=== PATIENT | female | born 1995 ===

== ENCOUNTER 2018-01-26 20:53 | Emergency (ER) | payer MEDICAID ==
[2018-01-26 20:53] VITALS: BMI 34.4
[2018-01-26 21:13] VITALS: RESP 18
--- NOTE | 2018-01-26 21:28 | C.PDOC ---
History Of Present Illness 22-year-old female presents to the ED with complaints of dysuria, back pain, and lower abdominal pain that began 4 hours ago. She also reports nausea and has had 5 episodes of non-bloody, non-bilious vomiting. Patient is currently menstruating but states she usually has no nausea. She denies any diarrhea, fever, chills, weakness. Patient did not take anything for pain prior to arrival. On further discussion, patient notes her last bowel movement was 3 days ago. Time Seen by Provider: 01/26/18 21:12 Chief Complaint (Nursing): Female Genitourinary History Per: Patient History/Exam Limitations: no limitations Onset/Duration Of Symptoms: Hrs (x4) Current Symptoms Are (Timing): Still Present Associated Symptoms: Nausea, Vomiting, Back Pain, Urinary Symptoms Past Medical History Reviewed: Historical Data, Nursing Documentation, Vital Signs Vital Signs: Last Vital Signs Temp 98.3 F 01/26/18 23:02 Pulse 65 01/26/18 23:02 Resp 18 01/26/18 23:02 BP 114/74 01/26/18 23:02 Pulse Ox 99 01/26/18 23:02 - Medical History PMH: Anemia, Asthma, Depression Denies: End Stage Renal Disease, Chronic Kidney Disease Surgical History: Appendectomy, Tonsillectomy - [facility] Procedures FAMILY THERAPY (05/13/14) INDIVID PSYCHOTHERAP NEC (05/13/14) OTHER GROUP THERAPY (05/13/14) Family History: States: Unknown Family Hx - Social History Hx Alcohol Use: No Hx Substance Use: No Review Of Systems Constitutional: Negative for: Fever, Chills, Sweats Cardiovascular: Negative for: Chest Pain Respiratory: Negative for: Shortness of Breath Gastrointestinal: Positive for: Nausea, Vomiting, Abdominal Pain, Constipation. Negative for: Diarrhea, Hematochezia, Hematemesis Genitourinary: Positive for: Dysuria, Vaginal Bleeding (currently on period). Negative for: Frequency Musculoskeletal: Positive for: Back Pain Neurological: Negative for: Weakness, Numbness, Incoordination Physical Exam - Physical Exam Appears: Well, Non-toxic, No Acute Distress Skin: Warm, Dry, No Rash Head: Atraumatic, Normacephalic Eye(s): bilateral: Normal Inspection Oral Mucosa: Moist Neck: Normal ROM Chest: Symmetrical Cardiovascular: Rhythm Regular, No Murmur Respiratory: Normal Breath Sounds, No Wheezing Gastrointestinal/Abdominal: Bowel Sounds (active), Soft, No Tenderness, No Mass , No Distention, No Guarding, No Rebound Back: No CVA Tenderness, No Vertebral Tenderness Extremity: Bilateral: Atraumatic, Normal Color And Temperature, Normal ROM Neurological/Psych: Oriented x3, Normal Speech Gait: Steady ED Course And Treatment - Laboratory Results Result Diagrams: 01/26/18 21:54 01/26/18 21:54 Urine POC: Negative O2 Sat by Pulse Oximetry: 100 (RA) Pulse Ox Interpretation: Normal Medical Decision Making Medical Decision Making: Impression: 22 year old with dysuria, back pain, abdominal pain, constipation Plan: --Urine POC --Urinalysis --Urine culture --Zofran ODT 4 mg --Pyridium 100 mg PO Progress/Updates: Labs reviewed, UA is clear. Xray shows fecal retention. Patient remained afebrile alert and oriented with stable vital signs during ER evaluation. On re-examination, patient is resting comfortably in no acute distress. Abdomen soft and no tenderness. Patient reports improvement of symptoms. Patient feels comfortable going home and will be discharged. Patient given follow up instructions. Instructed to return to ER if symptoms worsen or new symptoms arise. Disposition Counseled Patient/Family Regarding: Diagnosis, Need For Followup, Rx Given - Disposition Referrals: [facility] [Outside] [facility] [Outside] Disposition: HOME/ ROUTINE Disposition Time: 22:33 Condition: STABLE Additional Instructions: Your labs were normal. Xray shows constipation Take medications to help with constipation Prescriptions: Docusate [Colace] 100 mg PO TID PRN #30 cap PRN Reason: Constipation Magnesium Citrate [Citrate of Mag] 300 ml PO ONCE PRN #1 bottle PRN Reason: Constipation Instructions: Constipation, Adult (DC) Forms: @Pay (Khmer) - POA Present On Arrival: None - Clinical Impression Clinical Impression: Constipation - PA / [address] / Resident Statement MD/DO has reviewed & agrees with the documentation as recorded. - Scribe Statement The provider has reviewed the documentation as recorded by the Scribe (Kelly Woody) All medical record entries made by the Scribe were at my direction and personally dictated by me. I have reviewed the chart and agree that the record accurately reflects my personal performance of the history, physical exam, medical decision making, and the department course for this patient. I have also personally directed, reviewed, and agree with the discharge instructions and disposition.
[2018-01-26 21:30] LABS: SQUAMOUS EPITHIAL 1 /hpf (0-5); URINE BILIRUBIN NEGATIVE (NEGATIVE); URINE BLOOD NEGATIVE (NEGATIVE); URINE CLARITY Clear (Clear); URINE COLOR Yellow (YELLOW); URINE GLUCOSE (UA) NORMAL (Normal); URINE LEUKOCYTE ESTERASE NEG Leu/uL (Negative); URINE PROTEIN 1+ mg/dL (NEGATIVE)
[2018-01-26] MEDS ORDERED: Sodium Chloride 0.9% 1,000 ML IV ONE (21:42)
[2018-01-26 21:59] LABS: BASO # 0.1 K/uL (0.0-0.2); BASO % 0.7 % (0.0-2.0); EOS % 0.5 % (0.0-4.0); HEMOGLOBIN 13.8 g/dL (11.0-16.0); LYMPH # 1.6 K/uL (1.0-4.3); LYMPH % 18.7 % (20.0-40.0); MEAN CELL VOLUME 82.1 fL (81.0-99.0); MEAN CORPUSCULAR HEMOGLOBIN 26.8 pg (27.0-31.0); MEAN CORPUSCULAR HGB CONC 32.6 g/dL (33.0-37.0); MEAN PLATELET VOLUME 10.2 fL (7.2-11.7); MONO # 0.7 K/uL (0.0-0.8); MONO % 8.2 % (0.0-10.0); NEUT # 6.2 K/uL (1.8-7.0); NEUT % 71.9 % (50.0-75.0); RBC 5.16 Mil/uL (3.80-5.20); RED CELL DISTRIBUTION WIDTH 13.8 % (11.5-14.5); WHITE BLOOD COUNT 8.6 K/uL (4.8-10.8)
[2018-01-26 22:13] LABS: ALB/GLOB RATIO 1.5 (1.0-2.1); ALBUMIN 4.8 g/dL (3.5-5.0); ALT/SGPT 31 U/L (9-52); AST/SGOT 20 U/L (14-36); BLOOD UREA NITROGEN 14 mg/dL (7-17); CALCIUM 10.1 mg/dl (8.6-10.4); GFR NON-AFRICAN AMERICAN > 60
[2018-01-26] MEDS ORDERED: Sodium Chloride 0.9% 1,000 ML ONE (22:21)
[2018-01-26 23:09] VITALS: BP 114/74; PULSE 65; TEMP 98.3
[2018-01-27 00:14] VITALS: O2SAT 100
--- NOTE | 2018-01-27 08:39 | RAD ---
Date of service: 01/26/2018 PROCEDURE: Radiographs of the chest and abdomen (obstructive series) HISTORY: Abd Pain COMPARISON: No prior. TECHNIQUE: AP radiograph of the chest, with upright and supine radiographs of the abdomen. FINDINGS: CHEST: Lungs: Clear. Cardiovascular: Normal size heart. No pulmonary vascular congestion. Pleura: No pleural fluid. No pneumothorax. Other findings: None. ABDOMEN AND PELVIS: Bowel: Moderate stool retention. No evidence of mechanical obstruction. Free air: None. Bones: Lumbar leftward convexity. Other findings: None. IMPRESSION: No pulmonary infiltrate. Moderate stool retention. No evidence of mechanical bowel obstruction.
== END 2018-01-26 23:09 | disposition home or self-care (01) ==
LOC: C.ER 20:53
DX: K59.00 Constipation, unspecified (principal); D64.9 Anemia, unspecified
CPT/HCPCS: 74022; 80053; 81001; 85025; 96360; 99285; J7030

== ENCOUNTER 2018-01-28 23:25 | Inpatient (IN) | payer MEDICAID ==
[2018-01-28 23:25] VITALS: BMI 34.4
[2018-01-28] MEDS ORDERED: Sodium Chloride 0.9% 1,000 ML IV ONE (23:53)
--- NOTE | 2018-01-29 00:04 | C.PDOC ---
History Of Present Illness 22 year old female with PMHx of cholelithiasis presents to the ED complaining of abdominal pain. Patient states she had a syncopal episode when she was eating at a restaurant today. She was seen in another institution prior to arrival and was sent home. She denies any n/v/d, fever, chills, urinary symptoms or any other symptoms. Time Seen by Provider: 01/28/18 23:41 Chief Complaint (Nursing): Abdominal Pain History Per: Patient History/Exam Limitations: no limitations Onset/Duration Of Symptoms: Hrs Current Symptoms Are (Timing): Still Present Location Of Pain/Discomfort: Epigastric Radiation Of Pain To:: None Quality Of Discomfort: "Pain" Associated Symptoms: denies: Fever, Nausea, Vomiting, Diarrhea, Urinary Symptoms Past Medical History Reviewed: Historical Data, Nursing Documentation, Vital Signs Vital Signs: Last Vital Signs Temp 98.5 F 01/28/18 23:32 Pulse 74 01/28/18 23:32 Resp 20 01/28/18 23:32 BP 143/82 01/28/18 23:32 Pulse Ox 100 01/28/18 23:32 - Medical History PMH: Anemia, Asthma, Depression Denies: End Stage Renal Disease, Chronic Kidney Disease Surgical History: Appendectomy, Tonsillectomy - [facility] Procedures FAMILY THERAPY (05/13/14) INDIVID PSYCHOTHERAP NEC (05/13/14) OTHER GROUP THERAPY (05/13/14) Family History: States: No Known Family Hx - Social History Hx Alcohol Use: No Hx Substance Use: No - Immunization History Hx Tetanus Toxoid Vaccination: No Hx Influenza Vaccination: No Hx Pneumococcal Vaccination: No Review Of Systems Except As Marked, All Systems Reviewed And Found Negative. Constitutional: Negative for: Fever, Chills Gastrointestinal: Positive for: Abdominal Pain. Negative for: Nausea, Vomiting, Diarrhea Genitourinary: Negative for: Dysuria, Hematuria Physical Exam - Physical Exam Appears: Non-toxic, Other (morbidly obese) Skin: Warm, Dry Head: Normacephalic Eye(s): bilateral: Normal Inspection Nose: Normal Oral Mucosa: Moist Neck: Normal ROM Chest: Symmetrical Cardiovascular: Rhythm Regular Respiratory: Normal Breath Sounds, No Rales, No Rhonchi, No Wheezing Gastrointestinal/Abdominal: Tenderness (epigastric tenderness), No Guarding, No Rebound Extremity: Normal ROM Neurological/Psych: Oriented x3, Normal Speech Gait: Steady ED Course And Treatment - Laboratory Results Result Diagrams: 01/29/18 00:14 01/29/18 00:14 ECG: Interpreted By Me, Viewed By Me ECG Rhythm: Sinus Rhythm ECG Interpretation: No Acute Changes Interpretation Of ECG: No ST/T wave changes Rate From EC O2 Sat by Pulse Oximetry: 100 (RA) Pulse Ox Interpretation: Normal Medical Decision Making Medical Decision Making: suspect vasovagal etiology - pt with upper abd pain h/o of cholelithiasis. Orders: - EKG - Labwork - Bloodwork - UA - US abdomen - IV Fluids - Protonix 40mg IVP pt reassesed: us shows possible cholecystitis. pt with [facility], accepts request dr garrido for consult. unlikely cardiac syncope, stable for floor. Disposition - Disposition Disposition: HOSPITALIZED Disposition Time: 03:00 Condition: STABLE - Clinical Impression Clinical Impression: Cholecystitis, Syncope - Scribe Statement The provider has reviewed the documentation as recorded by the Mary Anneibfernanda Rodriguez All medical record entries made by the Mary Anneibfernanda were at my direction and personally dictated by me. I have reviewed the chart and agree that the record accurately reflects my personal performance of the history, physical exam, medical decision making, and the department course for this patient. I have also personally directed, reviewed, and agree with the discharge instructions and disposition.
[2018-01-29] MEDS ORDERED: Sodium Chloride 0.9% 1,000 ML ONE (00:11)
[2018-01-29 00:17] LABS: BASO # 0.1 K/uL (0.0-0.2); BASO % 0.6 % (0.0-2.0); EOS % 0.4 % (0.0-4.0); HEMOGLOBIN 13.7 g/dL (11.0-16.0); LYMPH # 1.6 K/uL (1.0-4.3); LYMPH % 17.8 % (20.0-40.0); MEAN CELL VOLUME 81.5 fL (81.0-99.0); MEAN CORPUSCULAR HEMOGLOBIN 27.1 pg (27.0-31.0); MEAN CORPUSCULAR HGB CONC 33.2 g/dL (33.0-37.0); MEAN PLATELET VOLUME 10.6 fL (7.2-11.7); MONO # 0.6 K/uL (0.0-0.8); MONO % 6.6 % (0.0-10.0); NEUT # 6.9 K/uL (1.8-7.0); NEUT % 74.6 % (50.0-75.0); RBC 5.05 Mil/uL (3.80-5.20); RED CELL DISTRIBUTION WIDTH 13.7 % (11.5-14.5); WHITE BLOOD COUNT 9.2 K/uL (4.8-10.8)
[2018-01-29 00:31] LABS: INR 1.2; PROTHROMBIN TIME 13.6 SECONDS (9.7-12.2)
[2018-01-29 01:02] LABS: ALB/GLOB RATIO 1.5 (1.0-2.1); ALBUMIN 4.1 g/dL (3.5-5.0); ALT/SGPT 32 U/L (9-52); AST/SGOT 17 U/L (14-36); BILIRUBIN,DIRECT 0.2 mg/dL (0.0-0.4); BLOOD UREA NITROGEN 11 mg/dL (7-17); CALCIUM 8.9 mg/dl (8.6-10.4); GFR NON-AFRICAN AMERICAN > 60
[2018-01-29 02:01] LABS: HCG,QUALITATIVE URINE NEGATIVE (NEGATIVE)
[2018-01-29 02:02] LABS: SQUAMOUS EPITHIAL < 1 /hpf (0-5); URINE BILIRUBIN NEGATIVE (NEGATIVE); URINE BLOOD 1+ (NEGATIVE); URINE CLARITY Clear (Clear); URINE COLOR Yellow (YELLOW); URINE GLUCOSE (UA) NORMAL (Normal); URINE LEUKOCYTE ESTERASE NEG Leu/uL (Negative); URINE PROTEIN NEGATIVE (NEGATIVE); URINE UROBILINOGEN NORMAL mg/dL (0.2-1.0)
[2018-01-29] MEDS ORDERED: Morphine 4 MG/ML VIAL ONE (02:41)
[2018-01-29] MEDS ORDERED: Piperacillin/Tazobact 3.375 gm 100 ML IVPB STA (03:22)
[2018-01-29] MEDS ORDERED: Piperacillin/Tazobact 3.375 gm 100 ML IVPB ONE (03:30)
--- NOTE | 2018-01-29 03:30 | CP.PCM.HP ---
History of Present Illness - History of Present Illness History of Present Illness: History and Physical - Dr Florez Service CC: Abdominal Pain HPI: Patient is a 22 year old female with past medical history of cholelithiasis who presented to the emergency department for worsening abdominal pain. Patient states that for the past two weeks she has been experiencing intermittent abdominal pain. Pain is located in the right upper and left upper quadrants. She states that she tried taking Tylenol and Advil with no relief. Movement makes it worse. She reports that warm compresses to her abdomen gives her some relief in symptoms. Patient reports that she has been dealing with intermittent abdominal pain for the past few years. Unsure if pain is worsened with food or not. While eating at a [place] restaurant today, she states that she started to feel dizzy and on the way to the bathroom has a syncopal episode. She reports that she lost consciousness and was taken to "[facility]" where she was later dischar ge. While at home, she tried drinking tea for the abdominal pain with no relief and prompted her to come to the emergency dept. Describes the pain as a stabbing pain. Rates that pain a 10/10 on the pain scale. She admits to feeling lightheaded and some dysuria. She denies fevers, chills, headaches, dizziness, cp, palpitations, shortness of breath, nausea/vomiting, constipation or diarrhea. Last bowel movement was today and was normal. ED Course: Morphine 4mg x 1, Zosyn 3.375 IVPB, Tylenol 975mg PO x1 Allergies: NKDA Medications: Denies Medical History: Cholelithiasis Surgical History: Appendectomy, Tonsillectomy Social History: Denies alcohol, tobacco, drug use; Has a 2 year old daught Family History: Mother - healthy; Father - HTN, Paternal Grandmother - Diabetes Mellitus, Maternal Grandmother - HTN OBGYN History: LMP 01/26/18, in 2016, Denies history of fibroids, ovarian cysts, STDs Present on Admission - Present on Admission Any Indicators Present on Admission: No Past Patient History - Infectious Disease Hx of Infectious Diseases: None - Tetanus Immunizations Tetanus Immunization: Up to Date - Past Social History Smoking Status: Never Smoked - CARDIAC Hx Cardiac Disorders: No - PULMONARY Hx Asthma: Yes - NEUROLOGICAL Hx Neurological Disorder: No - HEENT Hx HEENT Problems: No - RENAL Hx Chronic Kidney Disease: No - ENDOCRINE/METABOLIC Hx Endocrine Disorders: No - HEMATOLOGICAL/ONCOLOGICAL Hx Anemia: Yes - INTEGUMENTARY Hx Dermatological Problems: No - MUSCULOSKELETAL/RHEUMATOLOGICAL Hx Musculoskeletal Disorders: No - GASTROINTESTINAL Hx Gastrointestinal Disorders: No - GENITOURINARY/GYNECOLOGICAL Hx Genitourinary Disorders: No - PSYCHIATRIC Hx Depression: Yes Hx Substance Use: No - SURGICAL HISTORY Hx Appendectomy: Yes Hx Tonsillectomy: Yes - ANESTHESIA Hx Anesthesia: Yes Hx Anesthesia Reactions: No Meds Allergies/Adverse Reactions: Allergies Allergy/AdvReac Type Severity Reaction Status Date / Time No Known Allergies Allergy Verified 01/28/18 23:39 Physical Exam - Constitutional Appears: Non-toxic, No Acute Distress - Head Exam Head Exam: ATRAUMATIC, NORMAL INSPECTION, NORMOCEPHALIC - Eye Exam Eye Exam: EOMI, Normal appearance Pupil Exam: NORMAL ACCOMODATION - ENT Exam ENT Exam: Mucous Membranes Moist - Respiratory Exam Respiratory Exam: Clear to Auscultation Bilateral, NORMAL BREATHING PATTERN. absent: Rales, Rhonchi, Wheezes - Cardiovascular Exam Cardiovascular Exam: REGULAR RHYTHM, +S1, +S2 - GI/Abdominal Exam GI & Abdominal Exam: Normal Bowel Sounds, Soft, Tenderness (RUQ, epigastric and LUQ tenderness to palpation; Corey's negative). absent: Distended, Hernia, Rebound, Rigid - Extremities Exam Extremities exam: Positive for: normal inspection, pedal pulses present. Negative for: calf tenderness, joint swelling - Back Exam Back exam: NORMAL INSPECTION - Neurological Exam Neurological exam: Alert, Oriented x3 - Psychiatric Exam Psychiatric exam: Normal Affect, Normal Mood - Skin Skin Exam: Dry, Normal Color, Warm Results - Vital Signs Recent Vital Signs: Last Vital Signs Temp 98.4 F 01/29/18 01:56 Pulse 71 01/29/18 01:56 Resp 18 01/29/18 01:56 BP 121/77 01/29/18 01:56 Pulse Ox 100 01/29/18 01:56 - Labs Result Diagrams: 01/29/18 00:14 01/29/18 00:14 Labs: Laboratory Results - last 24 hr 01/29/18 01/29/18 01/29/18 00:14 00:14 00:14 WBC 9.2 RBC 5.05 Hgb 13.7 Hct 41.1 MCV 81.5 MCH 27.1 MCHC 33.2 RDW 13.7 Plt Count 198 MPV 10.6 Neut % (Auto) 74.6 Lymph % (Auto) 17.8 L [place] % (Auto) 6.6 Eos % (Auto) 0.4 Baso % (Auto) 0.6 Neut # (Auto) 6.9 Lymph # (Auto) 1.6 [place] # (Auto) 0.6 Eos # (Auto) 0.0 Baso # (Auto) 0.1 PT 13.6 H INR 1.2 APTT 35 H Sodium 145 Potassium 3.6 Chloride 110 H Carbon Dioxide 26 Anion Gap 13 BUN 11 Creatinine 0.6 L Est GFR ( Amer) > 60 Est GFR (Non-Af Amer) > 60 Random Glucose 93 Calcium 8.9 Total Bilirubin 0.6 Direct Bilirubin 0.2 AST 17 ALT 32 Alkaline Phosphatase 60 Troponin I < 0.0120 Total Protein 6.8 Albumin 4.1 Globulin 2.8 Albumin/Globulin Ratio 1.5 Urine Color Urine Clarity Urine pH Ur Specific [place] Urine Protein Urine Glucose (UA) Urine Ketones Urine Blood Urine Nitrate Urine Bilirubin Urine Urobilinogen Ur Leukocyte Esterase Urine WBC (Auto) Urine RBC (Auto) Ur Squamous Epith Cells Urine HCG, Qual 01/29/18 01:49 WBC RBC Hgb Hct MCV MCH MCHC RDW Plt Count MPV Neut % (Auto) Lymph % (Auto) [place] % (Auto) Eos % (Auto) Baso % (Auto) Neut # (Auto) Lymph # (Auto) [place] # (Auto) Eos # (Auto) Baso # (Auto) PT INR APTT Sodium Potassium Chloride Carbon Dioxide Anion Gap BUN Creatinine Est GFR ( Amer) Est GFR (Non-Af Amer) Random Glucose Calcium Total Bilirubin Direct Bilirubin AST ALT Alkaline Phosphatase Troponin I Total Protein Albumin Globulin Albumin/Globulin Ratio Urine Color Yellow Urine Clarity Clear Urine pH 6.0 Ur Specific [place] 1.021 Urine Protein Negative Urine Glucose (UA) Normal Urine Ketones Negative Urine Blood 1+ H Urine Nitrate Negative Urine Bilirubin Negative Urine Urobilinogen Normal Ur Leukocyte Esterase Neg Urine WBC (Auto) < 1 Urine RBC (Auto) 5 H Ur Squamous Epith Cells < 1 Urine HCG, Qual Negative Assessment & Plan - Assessment and Plan (Free Text) Assessment: A/P: Patient is a 22 year old female with past medical history of cholelithiasis who presented to the emergency department for worsening intermittent abdominal pain that started two weeks. Abdominal Pain, Symptomatic Cholelithiasis -Stable, afebrile -Admit inpatient for observation -Abdominal US showing gallstones (official report pending) -Continue Zosyn 3.375mg IVPB Q6H -Diet NPO -NS at 100cc/hr -Morphine 2mg Q4H prn severe pain -F/U am labs, lipase -General surgery on consult, Dr Lund, help appreciated Syncopal Episode -EKG showed NSR with no ST-T wave changes, 68 bpm -Troponin was negative x 1 -Echocardiogram ordered -F/U TSH/Free T4, Orthostatics -Fall precautions GI/DVT ppx -Protonix 40mg IVP daily -SCDs Plan discussed with Dr Gautam Kathleen DO PGY-2
[2018-01-29] MEDS: Sodium Chloride 0.9% 1,000 ML IV SCH ×2 (04:30→14:57)
--- NOTE | 2018-01-29 05:30 | CP.PCM.CON ---
Addendum entered and electronically signed by Joey Damian 01/29/18 12:12: OK to feed for surgical standpoint. OR this admission once cleared by medicine and crib attendant Pt seen and examined w Dr. Penn. Case DW Dr. Lund Original Note: History of Present Illness - History of Present Illness History of Present Illness: 22F w/ PMH of cholelithiasis presents with abdominal pain to [facility] ED. Patient states she's been experiencing intermittent abdominal pain for the past 2 weeks. She states epigastric pain is worsened with ingestion of fatty foods. Patient reports having dinner with a friend at a restaurant yesterday when suddenly she starting feeling ill. Patient had a syncopal episode in restaurant. She states for the past month she's developed shortness of breath when walking 2-3 blocks. Denies having syncopal episodes prior to this event. At time of examination she denied headache/dizziness, fever/chills, nausea/vomiting, diarrhea. PMH: cholelithiasis PSH: open appendectomy, tonsillectomy Allergies: NKDA Review of Systems - Review of Systems Review of Systems: 12 pt ROS reviewed, unremarkable, except as stated in HPI Past Patient History - Infectious Disease Hx of Infectious Diseases: None - Tetanus Immunizations Tetanus Immunization: Up to Date - Past Medical History & Family History Past Medical History?: Yes - Past Social History Smoking Status: Never Smoked - CARDIAC Hx Cardiac Disorders: No - PULMONARY Hx Asthma: Yes - NEUROLOGICAL Hx Neurological Disorder: No - HEENT Hx HEENT Problems: No - RENAL Hx Chronic Kidney Disease: No - ENDOCRINE/METABOLIC Hx Endocrine Disorders: No - HEMATOLOGICAL/ONCOLOGICAL Hx Anemia: Yes - INTEGUMENTARY Hx Dermatological Problems: No - MUSCULOSKELETAL/RHEUMATOLOGICAL Hx Musculoskeletal Disorders: No - GASTROINTESTINAL Hx Gastrointestinal Disorders: No - GENITOURINARY/GYNECOLOGICAL Hx Genitourinary Disorders: No - PSYCHIATRIC Hx Depression: Yes Hx Substance Use: No - SURGICAL HISTORY Hx Appendectomy: Yes Hx Tonsillectomy: Yes - ANESTHESIA Hx Anesthesia: Yes Hx Anesthesia Reactions: No Meds Allergies/Adverse Reactions: Allergies Allergy/AdvReac Type Severity Reaction Status Date / Time No Known Allergies Allergy Verified 01/28/18 23:39 - Medications Medications: Current Medications Acetaminophen (Tylenol 325mg Tab) 650 mg PO Q6 PRN PRN Reason: Headache Sodium Chloride (Sodium Chloride 0.9%) 1,000 mls @ 100 mls/hr IV .Q10H DWAIN Last Admin: 01/29/18 04:30 Dose: 100 mls/hr Piperacillin Sod/Tazobactam Sod (Zosyn 3.375 Gm Iv Premix) 3.375 gm in 50 mls @ 100 mls/hr IVPB Q6H DWAIN; Protocol Morphine Sulfate (Morphine) 2 mg IVP Q4 PRN PRN Reason: Pain, severe (8-10) Pantoprazole Sodium (Protonix Inj) 40 mg IVP DAILY DWAIN Pneumococcal Polyvalent Vaccine (Pneumovax 23 Vaccine) 0.5 ml SC .ONCE ONE Stop: 02/01/18 10:01 Physical Exam - Constitutional Appears: No Acute Distress - Head Exam Head Exam: NORMOCEPHALIC - Eye Exam Eye Exam: Normal appearance - ENT Exam ENT Exam: Mucous Membranes Moist - Respiratory Exam Respiratory Exam: NORMAL BREATHING PATTERN - Cardiovascular Exam Cardiovascular Exam: +S1, +S2 - GI/Abdominal Exam GI & Abdominal Exam: Soft. absent: Distended, Firm, Guarding, Tenderness - Neurological Exam Neurological exam: Alert, Oriented x3 - Psychiatric Exam Psychiatric exam: Normal Mood - Skin Skin Exam: Dry, Normal Color, Warm Results - Vital Signs Recent Vital Signs: Last Vital Signs Temp 98.1 F 01/29/18 03:35 Pulse 58 L 01/29/18 03:35 Resp 14 01/29/18 03:35 BP 121/78 01/29/18 03:35 Pulse Ox 99 01/29/18 03:35 - Labs Result Diagrams: 01/29/18 00:14 01/29/18 00:14 Labs: Laboratory Results - last 24 hr 01/29/18 01/29/18 01/29/18 00:14 00:14 00:14 WBC 9.2 RBC 5.05 Hgb 13.7 Hct 41.1 MCV 81.5 MCH 27.1 MCHC 33.2 RDW 13.7 Plt Count 198 MPV 10.6 Neut % (Auto) 74.6 Lymph % (Auto) 17.8 L [place] % (Auto) 6.6 Eos % (Auto) 0.4 Baso % (Auto) 0.6 Neut # (Auto) 6.9 Lymph # (Auto) 1.6 [place] # (Auto) 0.6 Eos # (Auto) 0.0 Baso # (Auto) 0.1 PT 13.6 H INR 1.2 APTT 35 H Sodium 145 Potassium 3.6 Chloride 110 H Carbon Dioxide 26 Anion Gap 13 BUN 11 Creatinine 0.6 L Est GFR ( Amer) > 60 Est GFR (Non-Af Amer) > 60 Random Glucose 93 Calcium 8.9 Total Bilirubin 0.6 Direct Bilirubin 0.2 AST 17 ALT 32 Alkaline Phosphatase 60 Troponin I < 0.0120 Total Protein 6.8 Albumin 4.1 Globulin 2.8 Albumin/Globulin Ratio 1.5 Urine Color Urine Clarity Urine pH Ur Specific [place] Urine Protein Urine Glucose (UA) Urine Ketones Urine Blood Urine Nitrate Urine Bilirubin Urine Urobilinogen Ur Leukocyte Esterase Urine WBC (Auto) Urine RBC (Auto) Ur Squamous Epith Cells Urine HCG, Qual 01/29/18 01:49 WBC RBC Hgb Hct MCV MCH MCHC RDW Plt Count MPV Neut % (Auto) Lymph % (Auto) [place] % (Auto) Eos % (Auto) Baso % (Auto) Neut # (Auto) Lymph # (Auto) [place] # (Auto) Eos # (Auto) Baso # (Auto) PT INR APTT Sodium Potassium Chloride Carbon Dioxide Anion Gap BUN Creatinine Est GFR ( Amer) Est GFR (Non-Af Amer) Random Glucose Calcium Total Bilirubin Direct Bilirubin AST ALT Alkaline Phosphatase Troponin I Total Protein Albumin Globulin Albumin/Globulin Ratio Urine Color Yellow Urine Clarity Clear Urine pH 6.0 Ur Specific [place] 1.021 Urine Protein Negative Urine Glucose (UA) Normal Urine Ketones Negative Urine Blood 1+ H Urine Nitrate Negative Urine Bilirubin Negative Urine Urobilinogen Normal Ur Leukocyte Esterase Neg Urine WBC (Auto) < 1 Urine RBC (Auto) 5 H Ur Squamous Epith Cells < 1 Urine HCG, Qual Negative Assessment & Plan - Assessment and Plan (Free Text) Assessment: 22F with symptomatic cholelithiasis Plan: NPO for now IVF ABx Anti-emetics prn Analgesic prn Needs medical and cardiac clearance prior to any surgical intervention Will continue to follow D/w Dr. Ashely Rob PGY3
[2018-01-29 07:36] LABS: BASO % 0.3 % (0.0-2.0); EOS # 0.1 K/uL (0.0-0.7); HEMOGLOBIN 11.9 g/dL (11.0-16.0); LYMPH # 2.7 K/uL (1.0-4.3); LYMPH % 34.1 % (20.0-40.0); MEAN CELL VOLUME 81.5 fL (81.0-99.0); MEAN CORPUSCULAR HEMOGLOBIN 27.2 pg (27.0-31.0); MEAN CORPUSCULAR HGB CONC 33.4 g/dL (33.0-37.0); MEAN PLATELET VOLUME 10.6 fL (7.2-11.7); MONO # 0.7 K/uL (0.0-0.8); MONO % 8.6 % (0.0-10.0); NEUT # 4.5 K/uL (1.8-7.0); RBC 4.37 Mil/uL (3.80-5.20); RED CELL DISTRIBUTION WIDTH 13.5 % (11.5-14.5)
[2018-01-29 07:48] LABS: ALB/GLOB RATIO 1.5 (1.0-2.1); ALBUMIN 3.6 g/dL (3.5-5.0); ALT/SGPT 30 U/L (9-52); AST/SGOT 14 U/L (14-36); BLOOD UREA NITROGEN 9 mg/dL (7-17); GFR NON-AFRICAN AMERICAN > 60; LIPASE 40 U/L (23-300)
[2018-01-29] MEDS ORDERED: Potassium Chloride 20 mEq/15 ml LIQ UD PO ONE (08:45)
[2018-01-29] MEDS: Piperacill/Tazo 3.375gm in Dex 3.375 GM/50 ML BAG IVPB SCH ×3 (09:42→21:28)
--- NOTE | 2018-01-29 11:30 | CT ---
Date of service: 01/29/2018 PROCEDURE: CT HEAD WITHOUT CONTRAST. HISTORY: syncope, hit head, c/o nausea and photphobia COMPARISON: No prior study available for comparison TECHNIQUE: Axial computed tomography images were obtained through the head/brain without intravenous contrast. Radiation dose: Total exam DLP = 1418.80 mGy-cm. This CT exam was performed using one or more of the following dose reduction techniques: Automated exposure control, adjustment of the mA and/or kV according to patient size, and/or use of iterative reconstruction technique. FINDINGS: HEMORRHAGE: No parenchymal, subarachnoid or extra-axial hemorrhage. BRAIN: No mass effect or edema. No atrophy or chronic microvascular ischemic changes. No obvious large parenchymal nor extra-axial mass or collection seen on this noncontrast exam. VENTRICLES: No obstructive hydrocephalus. CALVARIUM: Calvarium intact. PARANASAL SINUSES: Frontal sinuses are underpneumatized/mildly hypoplastic. Sphenoid sinuses are also diminutive. MASTOID AIR CELLS: None today right the at living this mastoid air complexes are well developed and currently well-aerated. 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 IMPRESSION: No acute intracranial abnormalities.
--- NOTE | 2018-01-29 14:43 | CP.PCM.PN ---
Subjective - Date & Time of Evaluation Date of Evaluation: 01/29/18 Time of Evaluation: 14:43 - Subjective Subjective: Brnuo Hartley PGY-1, Medicine progress note for Dr. Florez Pt was seen and examined at bedside. Pt reports nausea and diffuse abdominal pain, nonradiating, which has been worsening. Pt states that the pain is worse in her right upper abdomen. Pt is also complaining of worsening headache, which she attributes to falling and hitting her head during her syncopal episode prior to admission. Pt describes the headache as 8/10, located on the back of her head and the front of her head, worsened by opening her eyes and due to the lack of sleep last night, and associated with dizziness. Pt states that the pain medication has not improved her pain. Pt denies fevers, chills, chest pain, sob, hematochezia, melena, paresthesias, focal weakness, blurry vision or double vision. Pt also endorses burning on urination for the past 5 days, without hematuria. A 12-point ROS was reviewed and is otherwise unremarkable. Objective - Vital Signs/Intake and Output Vital Signs (last 24 hours): Temp Pulse Resp BP Pulse Ox 98.1 F 62 20 97/66 L 99 01/29/18 07:47 01/29/18 07:47 01/29/18 07:47 01/29/18 07:47 01/29/18 07:47 - Medications Medications: Current Medications Acetaminophen (Tylenol 325mg Tab) 650 mg PO Q6 PRN PRN Reason: Headache Sodium Chloride (Sodium Chloride 0.9%) 1,000 mls @ 100 mls/hr IV .Q10H [facility] Last Admin: 01/29/18 04:30 Dose: 100 mls/hr Piperacillin Sod/Tazobactam Sod (Zosyn 3.375 Gm Iv Premix) 3.375 gm in 50 mls @ 100 mls/hr IVPB Q6H [facility]; Protocol Last Admin: 01/29/18 09:42 Dose: 100 mls/hr Morphine Sulfate (Morphine) 2 mg IVP Q4 PRN PRN Reason: Pain, severe (8-10) Last Admin: 01/29/18 10:26 Dose: 2 mg Ondansetron HCl (Zofran Inj) 4 mg IVP Q6 PRN PRN Reason: Nausea/Vomiting Last Admin: 01/29/18 11:31 Dose: 4 mg Pantoprazole Sodium (Protonix Inj) 40 mg IVP DAILY [facility] Last Admin: 01/29/18 09:42 Dose: 40 mg Pneumococcal Polyvalent Vaccine (Pneumovax 23 Vaccine) 0.5 ml SC .ONCE ONE Stop: 02/01/18 10:01 - Labs Labs: 01/29/18 07:25 01/29/18 07:25 PT 13.6 SECONDS (9.7-12.2) H 01/29/18 00:14 INR 1.2 01/29/18 00:14 APTT 35 SECONDS (21-34) H 01/29/18 00:14 - Constitutional Appears: Non-toxic - Head Exam Head Exam: ATRAUMATIC, NORMOCEPHALIC Additional comments: (+) tenderness to the occiput, no swelling, no erythema, no hematoma or abrasion. - Eye Exam Eye Exam: EOMI, PERRL. absent: Conjunctival injection Additional comments: (+) photosensitivity - ENT Exam ENT Exam: Mucous Membranes Moist - Neck Exam Neck Exam: Full ROM, Normal Inspection. absent: Meningismus Additional comments: (-) bruit - Respiratory Exam Respiratory Exam: Clear to Ausculation Bilateral, NORMAL BREATHING PATTERN. absent: Rhonchi, Wheezes, Respiratory Distress - Cardiovascular Exam Cardiovascular Exam: REGULAR RHYTHM, +S1, +S2 Additional comments: (+) 3+ bilateral DP and radial pulses - GI/Abdominal Exam GI & Abdominal Exam: Soft, Tenderness ((+) moderate RUQ tenderness, (+) mild LUQ tenderness, (-) dailey's sign). absent: Distended, Rigid, Hernia, Rebound Additional comments: (+) obese - Extremities Exam Extremities Exam: Normal Inspection. absent: Calf Tenderness, Joint Swelling, Pedal Edema - Back Exam Back Exam: CVA tenderness (L) (mild), CVA tenderness (R) (mild) Assessment and Plan - Assessment and Plan (Free Text) Assessment: This is a 22 year old female with past medical history of cholelithiasis who presented to the emergency department for worsening intermittent abdominal pain that started two weeks ago. Plan: Abdominal Pain, Symptomatic Cholelithiasis - Abdominal US showing gallstones (official report pending) - Continue Zosyn 3.375mg IVPB Q6H - Diet NPO - NS at 100cc/hr - Morphine 2mg Q4H prn severe pain - Zofran 4 mg q6 prn nausea - urine test is negative - General surgery, Dr. Lund, will proceed with cholecystectomy likely tomorrow 01/30 Syncopal Episode - EKG showed NSR with no ST-T wave changes, 68 bpm - Troponin was negative x 1 - Echocardiogram pending official read - TSH, T4, is wnl - orthostatic blood pressure shows 157/71 standing, 110/68 sitting, 95/52 supine - Fall precautions - Case discussed with Dr. Jonn Ozuna (Cardiology), who states that pt has not cardiac contraindication for surgery. Dysuria - UA shows RBC 5, Blood 1 - pt started on macrobid 100 mg PO BID x 5 days for treatment of suspected UTI - f/u urine culture and sensitivity Hypokalemia - potassium is 3.3 - treated with potassium chloride 60 mEq PO by surgery - continue to monitor and replete as needed Headache, with nausea and photophobia s/p head trauma secondary to syncope - Nausea could be due to cholelithiasis, but in light of trauma, and photophobia head CT without contrast ordered - Head CT shows no acute intracranial pathology GI/DVT ppx - Protonix 40mg IVP daily - SCDs Dispo: Pt's Cardiac Risk index for noncardiac surgery is Class I (6% complications). Pt cleared by Cardiology, Dr. Jonn Ozuna. Plan to have ch olecystectomy tomorrow. Case was reviewed and discussed with attending physician, Dr. Florez All medical management as per Dr. Gautam Hartley PGY-1
--- NOTE | 2018-01-29 16:37 | US ---
Date of service: 01/29/2018 HISTORY: upper abd pain h/o of gallstones COMPARISON: None. TECHNIQUE: Sonographic evaluation of the abdomen. FINDINGS: LIVER: Measures 18.8 cm. Hepatopedal blood flow. Fatty infiltration manifest ultrasonographically as increased echogenicity of the liver parenchyma. No mass. No intrahepatic bile duct dilatation. GALLBLADDER: Cholelithiasis. Negative study for gallbladder wall thickening, pericholecystic fluid, sonographic Corey's sign. COMMON BILE DUCT: Measures 3.7 mm. No stones. No dilatation. PANCREAS: Unremarkable as visualized. No mass. No ductal dilatation. RIGHT KIDNEY: Measures 4.8 x 11.9cm. Normal echogenicity. No calculus, mass, or hydronephrosis. LEFT KIDNEY: Measures 6.7 x 12.8cm. Normal echogenicity. No calculus, mass, or hydronephrosis. SPLEEN: Normal in size and contour. No mass. AORTA: No aneurysmal dilatation. IVC: Unremarkable. OTHER FINDINGS: None. IMPRESSION: Cholelithiasis. No sonographic evidence of acute cholecystitis. Concordant findings (preliminary report) provided by [facility].
--- NOTE | 2018-01-29 19:03 | CP.PCM.CON ---
History of Present Illness - History of Present Illness History of Present Illness: I was asked to see patient by Dr Florez. Patient is a 22 year old female who presents with abdominal pain. She requires cholecystectomy. The patient states while at a restaurant she had a syncopal episode. She denies chest pain or dyspnea. Review of Systems - Constitutional Constitutional: absent: As Per HPI, Anorexia, Chills, Daytime Sleepiness, Excessive Sweating, Fatigue, Fever, Frequent Falls, Headache, Increased Appetite, Lethargy, Malaise, Night Sweats, Snoring, Sleep Apnea, Weight Gain, Weight Loss, Weakness, Other - EENT Eyes: absent: As Per HPI, Blind Spots, Blurred Vision, Change in Vision, Decreased Night Vision, Diplopia, Discharge, Dry Eye, Exophthalmos, Floaters, Irritation, Itchy Eyes, Loss of Peripheral Vision, Pain, Photophobia, Requires Corrective Lenses, Sees Flashes, Spots in Vision, Tunnel Vision, Other Visual Disturbances, Loss of Vision, Other Ears: absent: As Per HPI, Decreased Hearing, Ear Discharge, Ear Pain, Tinnitus, Abnormal Hearing, Disequilibrium, Dizziness, Other Nose/Mouth/Throat: absent: As Per HPI, Epistaxis, Nasal Congestion, Nasal Discharge, Nasal Obstruction, Nasal Trauma, Nose Pain, Post Nasal Drip, Sinus Pain, Sinus Pressure, Bleeding Gums, Change in Voice, Dental Pain, Dry Mouth, Dysphagia, Halitosis, Hoarsness, Lip Swelling, Mouth Lesions, Mouth Pain, Odynophagia, Sore Throat, Throat Swelling, Tongue Swelling, Facial Pain, Neck Pain, Neck Mass, Other - Cardiovascular Cardiovascular: Syncope - Respiratory Respiratory: absent: As Per HPI, Cough, Dyspnea, Hemoptysis, Dyspnea on Exertion, Wheezing, Snoring, Stridor, Pain on Inspiration, Chest Congestion, Excessive Mucous Production, Change in Mucous Color, Pain with Coughing, Other - Gastrointestinal Gastrointestinal: Abdominal Pain - Genitourinary Genitourinary: absent: As Per HPI, Change in Urinary Stream, Difficulty Urinating, Dysuria, Flank Pain, Hematuria, Pyuria, Nocturia, Urinary Incontinence, Urinary Frequency, Urinary Hesitance, Urinary Urgency, Voiding Freq/Small Amts, Freq UTI, Hx Renal/Bladder Calculi, Hx /Renal Surgery, Bladder Distension, Other - Musculoskeletal Musculoskeletal: absent: As Per HPI, Abnormal Gait, Arthralgias, Atrophy, Back Pain, Deformity, Joint Swelling, Limited Range of Motion, Loss of Height, Muscle Cramps, Muscle Weakness, Myalgias, Neck Pain, Numbness, Radiating Pain into Limb, Stiffness, Tingling, Other - Integumentary Integumentary: absent: As Per HPI, Acne, Alopecia, Bleeding Lesions, Change in Hair, Change in Nails, Change in Pigmentation, Changing Lesions, Dry Skin, Erythema, Furuncle, Hirsutism, Lesions, New Lesions, Non-Healing Lesions, Photosensitivity, Pruritus, Rash, Skin Pain, Skin Ulcer, Sores, Striae, Swelling, Unusual Bruising, Wounds, Jaundice, Other - Neurological Neurological: absent: As Per HPI, Abnormal Gait, Abnormal Hearing, Abnormal Movements, Abnormal Speech, Behavioral Changes, Burning Sensations, Confusion, Convulsions, Disequilibrium, Dizziness, Numbness, Focal Weakness, Frequent Falls, Headaches, Lack of Coordination, Loss of Vision, Memory Loss, Paresthesias, Radicular Pain, Restless Legs, Sensory Deficit, Syncope, Tingling, Tremor, Vertigo, Weakness, Other Visual Disturbances, Other - Psychiatric Psychiatric: absent: As Per HPI, Abnormal Sleep Pattern, Anhedonia, Anxiety, Auditory Hallucinations, Behavioral Changes, Change in Appetite, Change in Idalia lisandro, Confusion, Depression, Difficulty Concentrating, Hallucinations, Homicidal Ideation, Hopelessness, Irritability, Memory Loss, Mood Swings, Panic Attacks, Paranoia, Suicidal Ideation, Visual Hallucinations, Tactile Hallucinations, Other - Endocrine Endocrine: absent: As Per HPI, Change in Body Appearance, Change in Libido, Cold Intolorance, Deepening of Voice, Excessive Sweating, Fatigue, Flushing, Heat Intolorance, Increase in Ring/Shoe/Hat Size, Palpitations, Polydipsia, Polyphagia, Polyuria, Other - Hematologic/Lymphatic Hematologic: absent: As Per HPI, Easy Bleeding, Easy Bruising, Lymphadenopathy, Other Past Patient History - Infectious Disease Hx of Infectious Diseases: None - Tetanus Immunizations Tetanus Immunization: Up to Date - Past Medical History & Family History Past Medical History?: Yes - Past Social History Smoking Status: Never Smoked - CARDIAC Hx Cardiac Disorders: No - PULMONARY Hx Asthma: Yes - NEUROLOGICAL Hx Neurological Disorder: No - HEENT Hx HEENT Problems: No - RENAL Hx Chronic Kidney Disease: No - ENDOCRINE/METABOLIC Hx Endocrine Disorders: No - HEMATOLOGICAL/ONCOLOGICAL Hx Anemia: Yes - INTEGUMENTARY Hx Dermatological Problems: No - MUSCULOSKELETAL/RHEUMATOLOGICAL Hx Musculoskeletal Disorders: No - GASTROINTESTINAL Hx Gastrointestinal Disorders: No - GENITOURINARY/GYNECOLOGICAL Hx Genitourinary Disorders: No - PSYCHIATRIC Hx Depression: Yes Hx Substance Use: No - SURGICAL HISTORY Hx Appendectomy: Yes Hx Tonsillectomy: Yes - ANESTHESIA Hx Anesthesia: Yes Hx Anesthesia Reactions: No Meds Allergies/Adverse Reactions: Allergies Allergy/AdvReac Type Severity Reaction Status Date / Time No Known Allergies Allergy Verified 01/28/18 23:39 - Medications Medications: Current Medications Acetaminophen (Tylenol 325mg Tab) 650 mg PO Q6 PRN PRN Reason: Headache Sodium Chloride (Sodium Chloride 0.9%) 1,000 mls @ 100 mls/hr IV .Q10H [facility] Last Admin: 01/29/18 14:57 Dose: 100 mls/hr Piperacillin Sod/Tazobactam Sod (Zosyn 3.375 Gm Iv Premix) 3.375 gm in 50 mls @ 100 mls/hr IVPB Q6H [facility]; Protocol Last Admin: 01/29/18 14:55 Dose: 100 mls/hr Morphine Sulfate (Morphine) 2 mg IVP Q4 PRN PRN Reason: Pain, severe (8-10) Last Admin: 01/29/18 15:39 Dose: 2 mg Nitrofurantoin Macrocrystals (Macrobid) 100 mg PO Q12H [facility]; Protocol Stop: 02/03/18 05:01 Last Admin: 01/29/18 17:17 Dose: 100 mg Ondansetron HCl (Zofran Inj) 4 mg IVP Q6 PRN PRN Reason: Nausea/Vomiting Last Admin: 01/29/18 11:31 Dose: 4 mg Pantoprazole Sodium (Protonix Inj) 40 mg IVP DAILY [facility] Last Admin: 01/29/18 09:42 Dose: 40 mg Pneumococcal Polyvalent Vaccine (Pneumovax 23 Vaccine) 0.5 ml SC .ONCE ONE Stop: 02/01/18 10:01 Physical Exam - Constitutional Appears: Non-toxic - Head Exam Head Exam: NORMAL INSPECTION - Eye Exam Eye Exam: Normal appearance - ENT Exam ENT Exam: Mucous Membranes Moist - Neck Exam Neck exam: Positive for: Full Rom - Respiratory Exam Respiratory Exam: NORMAL BREATHING PATTERN - Cardiovascular Exam Cardiovascular Exam: REGULAR RHYTHM - GI/Abdominal Exam GI & Abdominal Exam: Normal Bowel Sounds - Rectal Exam Rectal Exam: Deferred - Extremities Exam Extremities exam: Negative for: pedal edema - Back Exam Back exam: NORMAL INSPECTION - Neurological Exam Neurological exam: Alert, Oriented x3 - Psychiatric Exam Psychiatric exam: Normal Affect - Skin Skin Exam: Normal Color Results - Vital Signs Recent Vital Signs: Last Vital Signs Temp 98.1 F 01/29/18 16:00 Pulse 64 01/29/18 16:00 Resp 20 01/29/18 16:00 BP 110/61 01/29/18 16:00 Pulse Ox 98 01/29/18 16:00 - Labs Result Diagrams: 01/29/18 07:25 01/29/18 07:25 Labs: Laboratory Results - last 24 hr 01/29/18 01/29/18 01/29/18 00:14 00:14 00:14 WBC 9.2 RBC 5.05 Hgb 13.7 Hct 41.1 MCV 81.5 MCH 27.1 MCHC 33.2 RDW 13.7 Plt Count 198 MPV 10.6 Neut % (Auto) 74.6 Lymph % (Auto) 17.8 L [place] % (Auto) 6.6 Eos % (Auto) 0.4 Baso % (Auto) 0.6 Neut # (Auto) 6.9 Lymph # (Auto) 1.6 [place] # (Auto) 0.6 Eos # (Auto) 0.0 Baso # (Auto) 0.1 PT 13.6 H INR 1.2 APTT 35 H Sodium 145 Potassium 3.6 Chloride 110 H Carbon Dioxide 26 Anion Gap 13 BUN 11 Creatinine 0.6 L Est GFR ( Amer) > 60 Est GFR (Non-Af Amer) > 60 Random Glucose 93 Hemoglobin A1c Calcium 8.9 Magnesium Total Bilirubin 0.6 Direct Bilirubin 0.2 AST 17 ALT 32 Alkaline Phosphatase 60 Troponin I < 0.0120 Total Protein 6.8 Albumin 4.1 Globulin 2.8 Albumin/Globulin Ratio 1.5 Lipase Free T4 TSH 3rd Generation Urine Color Urine Clarity Urine pH Ur Specific [place] Urine Protein Urine Glucose (UA) Urine Ketones Urine Blood Urine Nitrate Urine Bilirubin Urine Urobilinogen Ur Leukocyte Esterase Urine WBC (Auto) Urine RBC (Auto) Ur Squamous Epith Cells Urine HCG, Qual 09/27/18 09/27/18 09/27/18 01:49 07:25 07:25 WBC RBC Hgb Hct MCV MCH MCHC RDW Plt Count MPV Neut % (Auto) Lymph % (Auto) [place] % (Auto) Eos % (Auto) Baso % (Auto) Neut # (Auto) Lymph # (Auto) [place] # (Auto) Eos # (Auto) Baso # (Auto) PT INR APTT Sodium 145 Potassium 3.3 L Chloride 110 H Carbon Dioxide 24 Anion Gap 14 BUN 9 Creatinine 0.6 L Est GFR ( Amer) > 60 Est GFR (Non-Af Amer) > 60 Random Glucose 93 Hemoglobin A1c Calcium 9.0 Magnesium 1.9 Total Bilirubin 0.8 Direct Bilirubin AST 14 ALT 30 Alkaline Phosphatase 59 Troponin I Total Protein 6.1 L Albumin 3.6 Globulin 2.5 Albumin/Globulin Ratio 1.5 Lipase 40 Free T4 0.93 TSH 3rd Generation 2.09 Urine Color Yellow Urine Clarity Clear Urine pH 6.0 Ur Specific [place] 1.021 Urine Protein Negative Urine Glucose (UA) Normal Urine Ketones Negative Urine Blood 1+ H Urine Nitrate Negative Urine Bilirubin Negative Urine Urobilinogen Normal Ur Leukocyte Esterase Neg Urine WBC (Auto) < 1 Urine RBC (Auto) 5 H Ur Squamous Epith Cells < 1 Urine HCG, Qual Negative 01/29/18 01/29/18 07:25 07:25 WBC 8.0 RBC 4.37 Hgb 11.9 Hct 35.6 MCV 81.5 MCH 27.2 MCHC 33.4 RDW 13.5 Plt Count 174 MPV 10.6 Neut % (Auto) 56.0 Lymph % (Auto) 34.1 [place] % (Auto) 8.6 Eos % (Auto) 1.0 Baso % (Auto) 0.3 Neut # (Auto) 4.5 Lymph # (Auto) 2.7 [place] # (Auto) 0.7 Eos # (Auto) 0.1 Baso # (Auto) 0.0 PT INR APTT Sodium Potassium Chloride Carbon Dioxide Anion Gap BUN Creatinine Est GFR ( Amer) Est GFR (Non-Af Amer) Random Glucose Hemoglobin A1c 5.7 Calcium Magnesium Total Bilirubin Direct Bilirubin AST ALT Alkaline Phosphatase Troponin I Total Protein Albumin Globulin Albumin/Globulin Ratio Lipase Free T4 TSH 3rd Generation Urine Color Urine Clarity Urine pH Ur Specific [place] Urine Protein Urine Glucose (UA) Urine Ketones Urine Blood Urine Nitrate Urine Bilirubin Urine Urobilinogen Ur Leukocyte Esterase Urine WBC (Auto) Urine RBC (Auto) Ur Squamous Epith Cells Urine HCG, Qual - EKG Data EKG Interpreted by: Myself EKG shows normal: Sinus rhythm Assessment & Plan (1) Preoperative cardiovascular examination Assessment and Plan: echocardiogram reveasl normal left ventricualr function. EKG is normal is a low risk patient . There is no cardiovascular contraindication to the planned surgery. Status: Acute (2) Syncope Assessment and Plan: likely not cardiac. Status: Acute
[2018-01-30] MEDS: Piperacill/Tazo 3.375gm in Dex 3.375 GM/50 ML BAG IVPB SCH ×4 (03:00→21:41)
[2018-01-30] MEDS: Sodium Chloride 0.9% 1,000 ML IV SCH ×4 (03:01→21:42)
[2018-01-30 07:27] LABS: BASO % 0.5 % (0.0-2.0); EOS # 0.1 K/uL (0.0-0.7); EOS % 0.9 % (0.0-4.0); HEMOGLOBIN 11.7 g/dL (11.0-16.0); LYMPH # 2.3 K/uL (1.0-4.3); LYMPH % 32.7 % (20.0-40.0); MEAN CELL VOLUME 82.3 fL (81.0-99.0); MEAN CORPUSCULAR HGB CONC 32.9 g/dL (33.0-37.0); MEAN PLATELET VOLUME 10.7 fL (7.2-11.7); MONO # 0.5 K/uL (0.0-0.8); MONO % 7.7 % (0.0-10.0); NEUT % 58.2 % (50.0-75.0); NRBC % 0.1 % (0.0-2.0); RBC 4.33 Mil/uL (3.80-5.20); RED CELL DISTRIBUTION WIDTH 13.5 % (11.5-14.5); WHITE BLOOD COUNT 6.9 K/uL (4.8-10.8)
[2018-01-30 07:38] LABS: INR 1.3; PROTHROMBIN TIME 14.4 SECONDS (9.7-12.2)
[2018-01-30 07:45] LABS: ALB/GLOB RATIO 1.4 (1.0-2.1); ALBUMIN 3.6 g/dL (3.5-5.0); ALT/SGPT 28 U/L (9-52); AST/SGOT 13 U/L (14-36); BLOOD UREA NITROGEN 7 mg/dL (7-17); CALCIUM 9.2 mg/dl (8.6-10.4); GFR NON-AFRICAN AMERICAN > 60
[2018-01-30] MEDS ORDERED: Potassium Chloride 20 mEq/15 ml LIQ UD PO ONE (10:00)
[2018-01-30] MEDS: Potassium Chloride 20 mEq/15 ml LIQ UD PO SCH ×3 (10:16→14:14)
--- NOTE | 2018-01-30 10:25 | CARD ---
APPROVED REPORT Date of service: 01/29/2018 EXAM: Two-dimensional and M-mode echocardiogram with Doppler and color Doppler. INDICATION Dyspnea Syncope Anemia, asthma 2D DIMENSIONS IVSd1.2 (0.7-1.1cm)Aortic Root (2D)2.9 (2.0-3.7cm) LVDd5.0 (3.9-5.9cm)PWd1.2 (0.7-1.1cm) LA [id number] (18-58mL)LVDs2.9 (2.5-4.0cm) FS (%) 41.0 %LVEF (%)71.6 (>50%) LVEF (Reis's)34.24 %IVC0.00 cm M-Mode DIMENSIONS RVDd1.84 (2.1-3.2cm)Left Atrium (MM)3.09 (2.5-4.0cm) IVSd1.04 (0.7-1.1cm)Aortic Root3.02 (2.2-3.7cm) LVDd5.31 (4.0-5.6cm)Aortic Cusp Exc.2.29 (1.5-2.0cm) PWd1.15 (0.7-1.1cm)FS (%) 29 % LVDs3.78 (2.0-3.8cm)LVEF (%)65 (>50%) Mitral Valve MV E [id number]/sMV A Fgwsqfdl30.4cm/sE/A ratio1.7 TDI Lateral E' Peak V16.39cm/sMedial E' Peak V11.32cm/sE/Lateral E'6.9 E/Medial E'9.9 Tricuspid Valve TR Peak [id number]/sTR Peak [id number] LEFT VENTRICLE The left ventricle is normal size. There is mild concentric left ventricular hypertrophy. The Ejection Fraction is 60-65%. There is normal LV segmental wall motion. The left ventricular diastolic function is normal. RIGHT VENTRICLE The right ventricle is normal size. The right ventricular systolic function is normal. ATRIA The left atrium size is normal. The right atrium size is normal. The interatrial septum is intact with no evidence for an atrial septal defect. AORTIC VALVE The aortic valve is normal in structure. No aortic regurgitation is present. MITRAL VALVE The mitral valve is normal in structure. Mitral regurgitation is trace. TRICUSPID VALVE The tricuspid valve is normal in structure. There is mild tricuspid regurgitation. Right ventricular systolic pressure is estimated at 49 mmHg. There is moderate pulmonary hypertension. PULMONIC VALVE The pulmonary valve is normal in structure. GREAT VESSELS The aortic root is normal in size. The IVC is normal in size and collapses >50% with inspiration. PERICARDIAL EFFUSION There is no pericardial effusion. <Conclusion> The left ventricle is normal size. There is mild concentric left ventricular hypertrophy. The Ejection Fraction is 60-65%. The left ventricular diastolic function is normal. There is mild tricuspid regurgitation. Right ventricular systolic pressure is estimated at 49 mmHg. There is moderate pulmonary hypertension. The aortic root is normal in size. The IVC is normal in size and collapses >50% with inspiration. There is no pericardial effusion.
--- NOTE | 2018-01-30 11:38 | CARD ---
APPROVED REPORT Date of service: 01/29/2018 EKG Measurement Heart [id number] <Conclusion> Normal sinus rhythm Normal ECG
--- NOTE | 2018-01-30 13:28 | CP.PCM.PN ---
Subjective - Date & Time of Evaluation Date of Evaluation: 01/30/18 Time of Evaluation: 13:28 - Subjective Subjective: Bruno Hartley PGY-1, Medicine progress note for Dr. Florez Pt was seen and examined at bedside. No acute events overnight. Pt states that her abdominal pain has improved a little, but it still hurts. Pt rates the pain as 8/10, sharp, and located in the right upper and left upper abdomen. Pt states that the pain is improved from the 10/10 that she had earlier yesterday (01/29). Pt reports that her headache has improved, but states that her shortness of breath is still there. SOB is described as difficulty catching her breath when w alking to the bathroom. Pt's dysuria has resolved since starting macrobid yesterday. Pt denies headache, dizziness, lightheadedness, visual changes, chest pain, pleuritic chest pain, paresthesias, n/v/d, hematuria, vaginal discharge. Pt is scheduled to go to the OR today. A 12-point ROS was reviewed and is otherwise unremarkable. Objective - Vital Signs/Intake and Output Vital Signs (last 24 hours): Temp Pulse Resp BP Pulse Ox 98.4 F 67 20 133/75 99 01/30/18 08:00 01/30/18 08:00 01/30/18 08:00 01/30/18 08:00 01/30/18 08:00 Intake and Output: 01/30/18 01/30/18 06:59 18:59 Intake Total 2019 Balance 2019 - Medications Medications: Current Medications Acetaminophen (Tylenol 325mg Tab) 650 mg PO Q6 PRN PRN Reason: Headache Sodium Chloride (Sodium Chloride 0.9%) 1,000 mls @ 100 mls/hr IV .Q10H [facility] Last Admin: 01/30/18 10:17 Dose: Not Given Piperacillin Sod/Tazobactam Sod (Zosyn 3.375 Gm Iv Premix) 3.375 gm in 50 mls @ 100 mls/hr IVPB Q6H [facility]; Protocol Last Admin: 01/30/18 09:36 Dose: 100 mls/hr Influenza Virus Vaccine (Fluzone Quad [id number]) 60 mcg IM .ONCE ONE Stop: 01/31/18 10:01 Morphine Sulfate (Morphine) 2 mg IVP Q4 PRN PRN Reason: Pain, severe (8-10) Last Admin: 01/29/18 15:39 Dose: 2 mg Nitrofurantoin Macrocrystals (Macrobid) 100 mg PO Q12H [facility]; Protocol Stop: 02/03/18 05:01 Last Admin: 01/30/18 05:24 Dose: 100 mg Ondansetron HCl (Zofran Inj) 4 mg IVP Q6 PRN PRN Reason: Nausea/Vomiting Last Admin: 01/29/18 11:31 Dose: 4 mg Pantoprazole Sodium (Protonix Inj) 40 mg IVP DAILY [facility] Last Admin: 01/30/18 09:28 Dose: 40 mg Pneumococcal Polyvalent Vaccine (Pneumovax 23 Vaccine) 0.5 ml SC .ONCE ONE Stop: 02/01/18 10:01 Potassium Chloride (Potassium Chloride Oral Soln) 20 meq PO Q2H [facility] Stop: 01/30/18 14:16 Last Admin: 01/30/18 11:46 Dose: 20 meq - Labs Labs: 01/30/18 06:51 01/30/18 06:51 PT 14.4 SECONDS (9.7-12.2) H 01/30/18 06:51 INR 1.3 01/30/18 06:51 APTT 34 SECONDS (21-34) 01/30/18 06:51 - Constitutional Appears: Non-toxic, No Acute Distress - Head Exam Head Exam: ATRAUMATIC, NORMAL INSPECTION - Eye Exam Eye Exam: EOMI, Normal appearance, PERRL Additional comments: (-) photophobia - ENT Exam ENT Exam: Mucous Membranes Moist - Neck Exam Neck Exam: Normal Inspection - Respiratory Exam Respiratory Exam: Clear to Ausculation Bilateral, NORMAL BREATHING PATTERN. absent: Rales, Rhonchi, Wheezes, Respiratory Distress - Cardiovascular Exam Cardiovascular Exam: REGULAR RHYTHM, +S1, +S2 - GI/Abdominal Exam GI & Abdominal Exam: Soft, Tenderness (mild RUQ and LUQ tenderness; greater in the RUQ), Normal Bowel Sounds. absent: Distended, Firm, Guarding, Rigid, Hernia Additional comments: (+) obese - Extremities Exam Extremities Exam: Normal Inspection. absent: Calf Tenderness, Pedal Edema, Tenderness - Back Exam Back Exam: CVA tenderness (L), CVA tenderness (R), NORMAL INSPECTION - Neurological Exam Neurological Exam: Alert, Awake, Oriented x3 - Psychiatric Exam Psychiatric exam: Normal Affect, Normal Mood - Skin Skin Exam: Dry, Normal Color, Warm Assessment and Plan - Assessment and Plan (Free Text) Assessment: Assessment: This is a 22 year old female with past medical history of cholelithiasis who presented to the emergency department for worsening intermittent abdominal pain that started two weeks ago. Plan: Abdominal Pain, Symptomatic Cholelithiasis - Abdominal US read as cholelithiasis, no cholecystitis - Continue Zosyn 3.375mg IVPB Q6H - Diet NPO - NS at 100cc/hr - Morphine 2mg Q4H prn severe pain - Zofran 4 mg q6 prn nausea - urine test is negative - tbili is elevated - General surgery, Dr. Lund, will proceed with lap cholecystectomy today Syncopal Episode; likely vasovagal/due to pain - EKG showed NSR with no ST-T wave changes, 68 bpm - Troponin was negative x 1 - Echocardiogram pending official read - TSH, T4, is wnl - orthostatic blood pressure shows 157/71 standing, 110/68 sitting, 95/52 supine - Fall precautions - Case discussed with Dr. Jonn Ozuna (Cardiology), who states that pt has no cardiac contraindication for surgery. - as per cardio syncopal episode is likely not cardiac Dysuria - UA shows RBC 5, Blood 1 - pt started on macrobid 100 mg PO BID x 5 days for treatment of suspected UTI - f/u urine culture and sensitivity Hypokalemia - potassium is 3.3 - treated with potassium chloride 60 mEq PO by surgery - continue to monitor and replete as needed Headache (resolved), with nausea and photophobia s/p head trauma secondary to syncope - Nausea could be due to cholelithiasis, but in light of trauma, and photophobia head CT without contrast was ordered - Head CT shows no acute intracranial pathology - likely due to dehydration and NPO status for surgery, nausea from symptomatic cholelothiasis GI/DVT ppx - Protonix 40mg IVP daily - SCDs Dispo: Pt's Cardiac Risk index for noncardiac surgery is Class I (6% com plications). Pt is medically optimized for surgery. Plan to have lap cholecystectomy today. Case was reviewed and discussed with attending physician, Dr. Florez All medical management as per Dr. Gautam Hartley PGY-1
[2018-01-30] MEDS ORDERED: Lidocaine Hydrochloride 0 ML INJ ONE (15:30)
[2018-01-30] MEDS ORDERED: Bupivacaine 0.25% 20 ML INJ IJ ONE (15:30)
[2018-01-30] MEDS ORDERED: Iohexol 240 (50 ml) ONE (15:30)
[2018-01-30] MEDS ORDERED: ceFAZolin IV 1 gm in Dextrose 0 GM/0 ML BAG IVPB ONE (15:30)
[2018-01-30] MEDS ORDERED: Propofol 10 mg/ml Inj (20 ML) ONE (15:39)
[2018-01-30] MEDS ORDERED: Midazolam 2 MG/2 ML VIAL ONE (15:41)
[2018-01-30] MEDS ORDERED: Piperacillin/Tazobact 3.375 gm 100 ML IVPB ONE (15:50)
[2018-01-30] MEDS ORDERED: Labetalol 5mg/ml (4ml) ONE (16:42)
[2018-01-30] MEDS ORDERED: Neostigmine Methylsulfate 3mg/3ml Syringe IV ONE (16:57)
[2018-01-30] MEDS ORDERED: Morphine 4 MG/ML VIAL ONE (17:18)
--- NOTE | 2018-01-30 17:39 | PCM.SURG1 ---
Surgeon's Initial Post Op Note - Surgeon's Notes Surgeon: Dr. Lund Bench Molder: Dr. Calvin PGY3 Type of Anesthesia: General Endo Pre-Operative Diagnosis: symptomatic cholelithiasis Operative Findings: choelithiasis Post-Operative Diagnosis: same Operation Performed: laparoscopic cholecystectomy with intra-operative cholangiogram Specimen/Specimens Removed: gallbladder Estimated Blood Loss: EBL {In ML}: 50 Blood Products Given: N/A Drains Used: No Drains Post-Op Condition: Good Date of Surgery/Procedure: 01/30/18 Time of Surgery/Procedure: 17:37
[2018-01-30] MEDS ORDERED: Morphine 4 MG/ML VIAL IVP PRN (17:45)
[2018-01-30] MEDS: HYDROmorphone 0.5 mg/0.5 ml ISec IVP PRN ×3 (17:48→18:34)
[2018-01-30 19:55] VITALS: RESP 20
--- NOTE | 2018-01-31 01:35 | OP ---
PROCEDURE DATE: 01/30/2018 PREOPERATIVE DIAGNOSIS: Acute cholecystitis. POSTOPERATIVE DIAGNOSIS: Acute cholecystitis. PROCEDURE CARRIED OUT: Laparoscopic cholecystectomy with C-arm cholangiogram. SURGEON: Surendra Lund Jr., MD SOUND TRUCK OPERATOR: Robby Calvin DO ANESTHESIOLOGIST: INDICATIONS: The patient is a young woman with severe abdominal pain, found to have gallstones. OPERATIVE FINDINGS: 1. There were multiple stones throughout the gallbladder of variant sizes. 2. The cholangiogram carried out through the cystic duct showed free flow into the duodenum, visualization of the hepatic radicles, no evidence of any stones or strictures. Rest of the intraoperative findings were unremarkable except for some adhesion between the surface of the liver and the diaphragm and in the anterior abdominal wall. DESCRIPTION OF PROCEDURE: The patient was given general anesthesia and intravenous antibiotics. Venodyne boots were applied. A Lucinda trocar was inserted in the umbilicus by cut-down technique. Two additional 5-mm trocars were placed. The cystic duct, cystic artery, and the liver were identified, and a view of safety was obtained. After this had been done, we then clipped the cystic duct superiorly, carried out the cholangiogram through the cystic duct which showed the above mentioned findings. We then clipped the cystic duct, scoped the cystic artery, and then removed the gallbladder from the field. There was moderate amount of bleeding from the liver bed with a total blood loss of less than 100 mL. The gallbladder was removed intact in the bag through the umbilicus. OPERATION CARRIED OUT: Laparoscopic cholecystectomy with C-arm cholangiogram. At the time of the closure, we used a closure device at the umbilicus which was an airtight and finger tight closure. Surendra Lund Jr., MD cc: Roel Florez MD
[2018-01-31] MEDS: Piperacill/Tazo 3.375gm in Dex 3.375 GM/50 ML BAG IVPB SCH ×4 (03:10→21:25)
[2018-01-31] MEDS: Sodium Chloride 0.9% 1,000 ML IV SCH (05:38)
[2018-01-31 06:41] LABS: BASO % 0.4 % (0.0-2.0); EOS % 0.1 % (0.0-4.0); HEMOGLOBIN 12.1 g/dL (11.0-16.0); LYMPH # 1.3 K/uL (1.0-4.3); LYMPH % 14.1 % (20.0-40.0); MEAN CORPUSCULAR HGB CONC 33.3 g/dL (33.0-37.0); MEAN PLATELET VOLUME 10.5 fL (7.2-11.7); MONO # 0.9 K/uL (0.0-0.8); MONO % 10.1 % (0.0-10.0); NEUT % 75.3 % (50.0-75.0); RBC 4.47 Mil/uL (3.80-5.20); RED CELL DISTRIBUTION WIDTH 13.8 % (11.5-14.5); WHITE BLOOD COUNT 9.3 K/uL (4.8-10.8)
[2018-01-31 07:00] LABS: ALB/GLOB RATIO 1.5 (1.0-2.1); ALBUMIN 3.9 g/dL (3.5-5.0); ALT/SGPT 55 U/L (9-52); AST/SGOT 42 U/L (14-36); BLOOD UREA NITROGEN 5 mg/dL (7-17); CALCIUM 9.3 mg/dl (8.6-10.4); GFR NON-AFRICAN AMERICAN > 60
[2018-01-31] MEDS ORDERED: Influenza Vaccine 60 MCG/0.5 ML SYR (3 yr & up) IM ONE (10:00)
--- NOTE | 2018-01-31 13:52 | CP.PCM.PN ---
Subjective - Date & Time of Evaluation Date of Evaluation: 01/31/18 Time of Evaluation: 10:05 - Subjective Subjective: General surgery progress note for Dr. Miranda Mensah, PGY-2 Pt S & E at bedside at 0710 Pt reports abdominal pain at incision sites. Denies N & V, F & C. States that she drank some liquids, voiding. Objective - Vital Signs/Intake and Output Vital Signs (last 24 hours): Temp Pulse Resp BP Pulse Ox 98.8 F 79 20 135/76 97 01/31/18 07:41 01/31/18 07:41 01/31/18 07:41 01/31/18 07:41 01/31/18 07:41 Intake and Output: 01/31/18 01/31/18 06:59 18:59 Intake Total 1175 Balance 1175 - Medications Medications: Current Medications Acetaminophen (Tylenol 325mg Tab) 650 mg PO Q6 PRN PRN Reason: Headache Piperacillin Sod/Tazobactam Sod (Zosyn 3.375 Gm Iv Premix) 3.375 gm in 50 mls @ 100 mls/hr IVPB Q6H [facility]; Protocol Last Admin: 01/31/18 09:32 Dose: 100 mls/hr Sodium Chloride (Sodium Chloride 0.9%) 1,000 mls @ 50 mls/hr IV .Q20H [facility] Last Admin: 01/31/18 05:38 Dose: 50 mls/hr Morphine Sulfate (Morphine) 2 mg IVP Q4 PRN PRN Reason: Pain, severe (8-10) Last Admin: 01/31/18 10:57 Dose: 2 mg Nitrofurantoin Macrocrystals (Macrobid) 100 mg PO Q12H [facility]; Protocol Stop: 02/03/18 05:01 Last Admin: 01/31/18 05:29 Dose: 100 mg Ondansetron HCl (Zofran Inj) 4 mg IVP Q6 PRN PRN Reason: Nausea/Vomiting Last Admin: 01/29/18 11:31 Dose: 4 mg Pantoprazole Sodium (Protonix Inj) 40 mg IVP DAILY [facility] Last Admin: 01/31/18 09:31 Dose: 40 mg Pneumococcal Polyvalent Vaccine (Pneumovax 23 Vaccine) 0.5 ml SC .ONCE ONE Stop: 09/30/18 10:01 Tramadol HCl (Ultram) 50 mg PO Q8H PRN PRN Reason: Pain, Mild (1-3) Last Admin: 01/31/18 03:46 Dose: 50 mg - Labs Labs: 01/31/18 06:33 01/31/18 06:33 PT 14.4 SECONDS (9.7-12.2) H 01/30/18 06:51 INR 1.3 01/30/18 06:51 APTT 34 SECONDS (21-34) 01/30/18 06:51 - Constitutional Appears: Non-toxic, No Acute Distress - Head Exam Head Exam: ATRAUMATIC, NORMAL INSPECTION, NORMOCEPHALIC - Eye Exam Eye Exam: EOMI, Normal appearance - ENT Exam ENT Exam: Mucous Membranes Moist, Normal Exam - Neck Exam Neck Exam: Full ROM, Normal Inspection - Respiratory Exam Respiratory Exam: NORMAL BREATHING PATTERN - Cardiovascular Exam Cardiovascular Exam: REGULAR RHYTHM, +S1, +S2 - GI/Abdominal Exam GI & Abdominal Exam: Soft, Tenderness (over incision sites). absent: Distended (obese), Firm, Guarding, Rigid - Extremities Exam Extremities Exam: Normal Inspection - Neurological Exam Neurological Exam: Alert, Awake, CN II-XII Intact, Oriented x3 - Psychiatric Exam Psychiatric exam: Normal Affect, Normal Mood - Skin Skin Exam: Dry, Intact, Normal Color, Warm Assessment and Plan - Assessment and Plan (Free Text) Assessment: 22F POD#1 s/p lap cholecystectomy w/IOC Plan: Pt cleared for d/c home from surgical standpoint No need for abx upon d/c FU w/Dr. Lund in the office in 2 weeks Ok to resume normal diet No heavy lifiting for 4-6 weeks MAINOR Mensah, PGY-2
--- NOTE | 2018-01-31 17:19 | CP.PCM.PN ---
Subjective - Date & Time of Evaluation Date of Evaluation: 01/31/18 Time of Evaluation: 07:00 - Subjective Subjective: PGY2 Progress Note for Dr. Florez Patient seen and examined at bedside and in no acute distress. Patient says she is having generalized abdominal and back pain. Patient is tolerating her diet. Patient denies any fevers, chills, nausea, vomiting, constipation, or diarrhea. Objective - Vital Signs/Intake and Output Vital Signs (last 24 hours): Temp Pulse Resp BP Pulse Ox 98.3 F 78 20 125/75 96 01/31/18 15:00 01/31/18 15:00 01/31/18 15:00 01/31/18 15:00 01/31/18 15:00 Intake and Output: 01/31/18 01/31/18 06:59 18:59 Intake Total 1175 1050 Balance 1175 1050 - Medications Medications: Current Medications Acetaminophen (Tylenol 325mg Tab) 650 mg PO Q6 PRN PRN Reason: Headache Piperacillin Sod/Tazobactam Sod (Zosyn 3.375 Gm Iv Premix) 3.375 gm in 50 mls @ 100 mls/hr IVPB Q6H [facility]; Protocol Last Admin: 01/31/18 14:40 Dose: 100 mls/hr Sodium Chloride (Sodium Chloride 0.9%) 1,000 mls @ 50 mls/hr IV .Q20H [facility] Last Admin: 01/31/18 05:38 Dose: 50 mls/hr Morphine Sulfate (Morphine) 2 mg IVP Q4 PRN PRN Reason: Pain, severe (8-10) Last Admin: 01/31/18 10:57 Dose: 2 mg Nitrofurantoin Macrocrystals (Macrobid) 100 mg PO Q12H [facility]; Protocol Stop: 02/03/18 05:01 Last Admin: 01/31/18 05:29 Dose: 100 mg Ondansetron HCl (Zofran Inj) 4 mg IVP Q6 PRN PRN Reason: Nausea/Vomiting Last Admin: 01/29/18 11:31 Dose: 4 mg Pantoprazole Sodium (Protonix Inj) 40 mg IVP DAILY [facility] Last Admin: 01/31/18 09:31 Dose: 40 mg Pneumococcal Polyvalent Vaccine (Pneumovax 23 Vaccine) 0.5 ml SC .ONCE ONE Stop: 02/01/18 10:01 Tramadol HCl (Ultram) 50 mg PO Q8H PRN PRN Reason: Pain, Mild (1-3) Last Admin: 01/31/18 03:46 Dose: 50 mg - Labs Labs: 01/31/18 06:33 01/31/18 06:33 PT 14.4 SECONDS (9.7-12.2) H 01/30/18 06:51 INR 1.3 01/30/18 06:51 APTT 34 SECONDS (21-34) 01/30/18 06:51 - Constitutional Appears: Non-toxic, No Acute Distress - Head Exam Head Exam: ATRAUMATIC, NORMAL INSPECTION, NORMOCEPHALIC - Eye Exam Eye Exam: EOMI, Normal appearance - ENT Exam ENT Exam: Mucous Membranes Moist - Respiratory Exam Respiratory Exam: Clear to Ausculation Bilateral, NORMAL BREATHING PATTERN - Cardiovascular Exam Cardiovascular Exam: REGULAR RHYTHM, RRR, +S1, +S2 - GI/Abdominal Exam GI & Abdominal Exam: Soft, Tenderness Additional comments: incisions covered with c/d/i dressings - Neurological Exam Neurological Exam: Alert, Awake, Oriented x3 - Psychiatric Exam Psychiatric exam: Normal Affect, Normal Mood - Skin Skin Exam: Normal Color, Warm Additional comments: incisions covered with c/d/i dressings Assessment and Plan - Assessment and Plan (Free Text) Assessment: This is a 22 year old female with past medical history of cholelithiasis who presented to the emergency department for worsening intermittent abdominal pain that started two weeks ago s/p cholecystectomy POD #1 Plan: Cholecystectomy POD #1 - Abdominal US read as cholelithiasis, no cholecystitis - Continue Zosyn 3.375mg IVPB Q6H - heart healthy diet - NS at 100cc/hr - Morphine 2mg Q4H prn severe pain - Zofran 4 mg q6 prn nausea - urine test is negative - tbili is elevated -pain control: morphine 2mg ivp q4h prn, ultram 50mg q8h prn -NS at 50cc/hr Syncopal Episode; likely vasovagal/due to pain - EKG showed NSR with no ST-T wave changes, 68 bpm - Troponin was negative x 1 - Echocardiogram pending official read - TSH, T4, is wnl - orthostatic blood pressure shows 157/71 standing, 110/68 sitting, 95/52 supine - Fall precautions - Case discussed with Dr. Jonn Ozuna (Cardiology), who states that pt has no cardiac contraindication for surgery. - as per cardio syncopal episode is likely not cardiac Dysuria - UA shows RBC 5, Blood 1 - pt started on macrobid 100 mg PO BID x 5 days for treatment of suspected UTI - f/u urine culture and sensitivity Hypokalemia, resolved - continue to monitor and replete as needed Headache (resolved) with nausea and photophobia s/p head trauma secondary to syncope - Nausea could be due to cholelithiasis, but in light of trauma, and photophobia head CT without contrast was ordered - Head CT shows no acute intracranial pathology - likely due to dehydration and NPO status for surgery, nausea from symptomatic cholelothiasis GI/DVT ppx - Protonix 40mg IVP daily - SCDs Dispo: Pt's Cardiac Risk index for noncardiac surgery is Class I (6% complications). Pt is medically optimized for surgery. Plan to have lap cholecystectomy today. Case was reviewed and discussed with attending physician, Dr. Florez All medical management as per Dr. Florez
[2018-02-01] MEDS: Piperacill/Tazo 3.375gm in Dex 3.375 GM/50 ML BAG IVPB SCH ×2 (02:56→09:12)
[2018-02-01 08:20] VITALS: BP 106/61; PULSE 68; TEMP 99.3; O2SAT 97
[2018-02-01 08:52] LABS: BASO # 0.1 K/uL (0.0-0.2); BASO % 0.6 % (0.0-2.0); EOS # 0.1 K/uL (0.0-0.7); EOS % 0.8 % (0.0-4.0); HEMOGLOBIN 12.5 g/dL (11.0-16.0); LYMPH % 20.1 % (20.0-40.0); MEAN CELL VOLUME 82.1 fL (81.0-99.0); MEAN CORPUSCULAR HEMOGLOBIN 27.3 pg (27.0-31.0); MEAN CORPUSCULAR HGB CONC 33.3 g/dL (33.0-37.0); MEAN PLATELET VOLUME 11.1 fL (7.2-11.7); MONO % 10.1 % (0.0-10.0); NEUT # 6.7 K/uL (1.8-7.0); NEUT % 68.4 % (50.0-75.0); RBC 4.57 Mil/uL (3.80-5.20); RED CELL DISTRIBUTION WIDTH 13.5 % (11.5-14.5); WHITE BLOOD COUNT 9.8 K/uL (4.8-10.8)
[2018-02-01 09:09] LABS: ALB/GLOB RATIO 1.4 (1.0-2.1); ALBUMIN 4.1 g/dL (3.5-5.0); ALT/SGPT 71 U/L (9-52); AST/SGOT 41 U/L (14-36); BLOOD UREA NITROGEN 8 mg/dL (7-17); CALCIUM 9.6 mg/dl (8.6-10.4); GFR NON-AFRICAN AMERICAN > 60
[2018-02-01] MEDS ORDERED: Pneumococcal 23-Valent Vaccine SC ONE (10:00)
[2018-02-01] MEDS: Sodium Chloride 0.9% 1,000 ML IV SCH (14:08)
--- NOTE | 2018-02-01 18:43 | CP.PCM.DIS ---
Provider - Provider Date of Admission: 01/29/18 03:24 Attending physician: Roel Florez Jr, MD Consults: Cardio (Laith) Surg ([place]) Time Spent in preparation of Discharge (in minutes): 35 Diagnosis - Discharge Diagnosis (1) Cholelithiasis Status: Resolved (2) Syncope Status: Resolved Hospital Course - Lab Results Lab Results: Most Recent Lab Values WBC 9.8 K/uL (4.8-10.8) 02/01/18 08:38 RBC 4.57 Mil/uL (3.80-5.20) 02/01/18 08:38 Hgb 12.5 g/dL (11.0-16.0) 02/01/18 08:38 Hct 37.5 % (34.0-47.0) 02/01/18 08:38 MCV 82.1 fL (81.0-99.0) 02/01/18 08:38 MCH 27.3 pg (27.0-31.0) 02/01/18 08:38 MCHC 33.3 g/dL (33.0-37.0) 02/01/18 08:38 RDW 13.5 % (11.5-14.5) 02/01/18 08:38 Plt Count 183 K/uL (130-400) 02/01/18 08:38 MPV 11.1 fL (7.2-11.7) 02/01/18 08:38 Neut % (Auto) 68.4 % (50.0-75.0) 02/01/18 08:38 Lymph % (Auto) 20.1 % (20.0-40.0) 02/01/18 08:38 [place] % (Auto) 10.1 % (0.0-10.0) H 02/01/18 08:38 Eos % (Auto) 0.8 % (0.0-4.0) 02/01/18 08:38 Baso % (Auto) 0.6 % (0.0-2.0) 02/01/18 08:38 Neut # (Auto) 6.7 K/uL (1.8-7.0) 02/01/18 08:38 Lymph # (Auto) 2.0 K/uL (1.0-4.3) 02/01/18 08:38 [place] # (Auto) 1.0 K/uL (0.0-0.8) H 02/01/18 08:38 Eos # (Auto) 0.1 K/uL (0.0-0.7) 02/01/18 08:38 Baso # (Auto) 0.1 K/uL (0.0-0.2) 02/01/18 08:38 PT 14.4 SECONDS (9.7-12.2) H 01/30/18 06:51 INR 1.3 01/30/18 06:51 APTT 34 SECONDS (21-34) 01/30/18 06:51 Sodium 142 mmol/L (132-148) 02/01/18 08:38 Potassium 3.7 mmol/L (3.6-5.2) 02/01/18 08:38 Chloride 105 mmol/L (98-107) 02/01/18 08:38 Carbon Dioxide 26 mmol/L (22-30) 02/01/18 08:38 Anion Gap 15 (10-20) 02/01/18 08:38 BUN 8 mg/dL (7-17) 02/01/18 08:38 Creatinine 0.6 mg/dL (0.7-1.2) L 02/01/18 08:38 Est GFR ( Amer) > 60 02/01/18 08:38 Est GFR (Non-Af Amer) > 60 02/01/18 08:38 Random Glucose 95 mg/dL (65-105) 02/01/18 08:38 Hemoglobin A1c 5.7 % (4.2-6.5) 01/29/18 07:25 Calcium 9.6 mg/dl (8.6-10.4) 02/01/18 08:38 Magnesium 1.9 mg/dL (1.6-2.3) 01/29/18 07:25 Total Bilirubin 1.2 mg/dL (0.2-1.3) 02/01/18 08:38 Direct Bilirubin 0.2 mg/dL (0.0-0.4) 01/29/18 00:14 AST 41 U/L (14-36) H 02/01/18 08:38 ALT 71 U/L (9-52) H D 02/01/18 08:38 Alkaline Phosphatase 66 U/L (38-126) 02/01/18 08:38 Troponin I < 0.0120 ng/mL (0.00-0.120) 01/29/18 00:14 Total Protein 7.0 g/dL (6.3-8.3) 02/01/18 08:38 Albumin 4.1 g/dL (3.5-5.0) 02/01/18 08:38 Globulin 2.9 gm/dL (2.2-3.9) 02/01/18 08:38 Albumin/Globulin Ratio 1.4 (1.0-2.1) 02/01/18 08:38 Lipase 40 U/L (23-300) 01/29/18 07:25 Free T4 0.93 ng/dL (0.78-2.19) 01/29/18 07:25 TSH 3rd Generation 2.09 mIU/L (0.46-4.68) 01/29/18 07:25 Urine Color Yellow (YELLOW) 01/29/18 01:49 Urine Clarity Clear (Clear) 01/29/18 01:49 Urine pH 6.0 (5.0-8.0) 01/29/18 01:49 Ur Specific [place] 1.021 (1.003-1.030) 01/29/18 01:49 Urine Protein Negative mg/dL (NEGATIVE) 01/29/18 01:49 Urine Glucose (UA) Normal mg/dL (Normal) 01/29/18 01:49 Urine Ketones Negative mg/dL (NEGATIVE) 01/29/18 01:49 Urine Blood 1+ (NEGATIVE) H 01/29/18 01:49 Urine Nitrate Negative (NEGATIVE) 01/29/18 01:49 Urine Bilirubin Negative (NEGATIVE) 01/29/18 01:49 Urine Urobilinogen Normal mg/dL (0.2-1.0) 01/29/18 01:49 Ur Leukocyte Esterase Neg Joe/uL (Negative) 01/29/18 01:49 Urine WBC (Auto) < 1 /hpf (0-5) 01/29/18 01:49 Urine RBC (Auto) 5 /hpf (0-3) H 01/29/18 01:49 Ur Squamous Epith Cells < 1 /hpf (0-5) 01/29/18 01:49 Urine HCG, Qual Negative (NEGATIVE) 01/30/18 10:50 - Hospital Course Hospital Course: "HPI: Patient is a 22 year old female with past medical history of cholelithiasis who presented to the emergency department for worsening abdominal pain. Patient states that for the past two weeks she has been experiencing intermittent abdominal pain. Pain is located in the right upper and left upper quadrants. She states that she tried taking Tylenol and Advil with no relief. Mo vement makes it worse. She reports that warm compresses to her abdomen gives her some relief in symptoms. Patient reports that she has been dealing with intermittent abdominal pain for the past few years. Unsure if pain is worsened with food or not. While eating at a [place] restaurant today, she states that she started to feel dizzy and on the way to the bathroom has a syncopal episode. She reports that she lost consciousness and was taken to "[facility]" where she was later discharged. While at home, she tried drinking tea for the abdominal pain with no relief and prompted her to come to the emergency dept. Describes the pain as a stabbing pain. Rates that pain a 10/10 on the pain scale. She admits to feeling lightheaded and some dysuria. She denies fevers, chills, headaches, dizziness, cp, palpitations, shortness of breath, nausea/vomiting, constipation or diarrhea. Last bowel movement was today and was normal." Patient admitted for symptomatic cholelithiasis and syncope. Dr. Ozuna consulted for cardiac clearance prior to cholecystectomy. ECHO showed normal LVEF. EKG showed normal sinus rhythm. Patient had low cardiac risk for surgery. Patient was placed on antibiotics and given pain meds and nausea medication. Patient incidentally found to have UTI and treated with Macrobid. Patient had a laparoscopic cholecystectomy with intra-operative cholangiogram on 01/30/18 with no complications. Post op patient's pain was controlled. Patient was able to tolerate diet with no nausea or vomiting. Patient stable for discharge and will follow up with surgery this week. This is a summary of the patient's hospital course, please see chart for details. Discharge Exam - Additional Findings Additional findings: - Constitutional Appears: Non-toxic, No Acute Distress - Head Exam Head Exam: ATRAUMATIC, NORMAL INSPECTION, NORMOCEPHALIC - Eye Exam Eye Exam: EOMI, Normal appearance - ENT Exam ENT Exam: Mucous Membranes Moist - Respiratory Exam Respiratory Exam: Clear to Ausculation Bilateral, NORMAL BREATHING PATTERN - Cardiovascular Exam Cardiovascular Exam: REGULAR RHYTHM, RRR, +S1, +S2 - GI/Abdominal Exam GI & Abdominal Exam: Soft, Tenderness Additional comments: incisions covered with c/d/i dressings - Neurological Exam Neurological Exam: Alert, Awake, Oriented x3 - Psychiatric Exam Psychiatric exam: Normal Affect, Normal Mood - Skin Skin Exam: Normal Color, Warm Additional comments: incisions covered with c/d/i dressings Discharge Plan - Discharge Medications Prescriptions: Ibuprofen [Motrin] 600 mg PO Q6H PRN #10 tab PRN Reason: Pain, Moderate (4-7) Nitrofurantoin Macrocrystals [Macrobid] 100 mg PO Q12H #5 cap - Follow Up Plan Condition: GOOD Disposition: HOME/ ROUTINE Instructions: Cholecystectomy, Laparoscopic Surgery, Ibuprofen, Nitrofurantoin, Cholecystitis (DC) Additional Instructions: Ok to resume normal diet No heavy lifting for 4-6 weeks No swimming, hot tubbing or sitting in water Ok to shower, keep dressings clean/dry until you see Dr. Lund in the office Please follow up with Dr. Lund in 1 week Patient to take Macrobid 100mg twice a day for 2 more days. Patient to take Motrin every 6 hours as needed for pain. Patient may take Tylenol as well for pain. Instructions explained to patient who understands and agrees. Referrals: Surendra Lund Jr., MD [Staff Provider] -
== END 2018-02-01 15:30 | disposition home or self-care (01) | DRG 493 ==
LOC: C.ER 23:25 → C.3T 01-29 03:24
PROVIDERS: ADMIT Internal Medicine; ATTEND Internal Medicine
PROC: BF141ZZ Fluoroscopy of Gallbladder, Bile Ducts and Pancreatic Ducts using Low Osmolar Contrast (ICD-10-PCS; 2018-01-30)
PROC: 0FT44ZZ Resection of Gallbladder, Percutaneous Endoscopic Approach (ICD-10-PCS; principal; 2018-01-30 14:15)
DX: K80.00 Calculus of gallbladder with acute cholecystitis without obstruction (principal); N39.0 Urinary tract infection, site not specified; J45.909 Unspecified asthma, uncomplicated; Z82.49 Family history of ischemic heart disease and other diseases of the circulatory system; Z83.3 Family history of diabetes mellitus